=== PATIENT | male | born 1950 | race Caucasian/White ===

== ENCOUNTER 2018-02-05 06:46 | Day surgery (SDC) | payer SELFPAY ==
[2018-02-04 14:53] VITALS: BP 155/72
[2018-02-04 14:58] LABS: BASOPHILS % (AUTO) 0.8 % (0.0-5.0); EOSINOPHILS % (AUTO) 2.1 % (0.0-8.0); HEMATOCRIT 39.4 % (42-54); LYMPHOCYTES % (AUTO) 40.3 % (21.0-51.0); MEAN CORPUSCULAR HGB CONC 35.2 g/dL (32.0-36.0); MONOCYTES % (AUTO) 7.6 % (3.0-13.0); NEUTROPHILS % (AUTO) 49.2 % (40.0-77.0); PLATELET COUNT (AUTO) 295 K/uL (130-400); RED BLOOD CELL COUNT(AUTO) 4.33 MIL/uL (4.50-6.20); RED CELL DISTRIBUTION WIDTH 13.2 % (11.0-15.5)
[2018-02-04 15:10] LABS: CREATININE 1.1 mg/dL (0.5-1.5); POTASSIUM 4.6 mmol/L (3.5-5.1)
[~2018-02-05] VITALS: Ht 168.9 cm; Wt 79.3 kg
[2018-02-05] VITALS (20 sets, daily range): BP systolic 134–175; BP diastolic 78–94
[2018-02-05] MEDS: LEVOFLOXACIN 500 MG/D5W 100 ML 100 ML IV SCH ×2 (06:00→09:17)
[~2018-02-05 06:46] MED LIST: OXYB5TAB10 PO; TAMS0.4C32 PO
[2018-02-05] MEDS ORDERED: LACTATED RINGERS 1000ML 1,000 ML IV ONE (07:11)
[2018-02-05] MEDS ORDERED: ISOVUE-370 50ML VIAL IV ONE (08:00)
[2018-02-05] MEDS ORDERED: GLYCOPYRROLATE 0.2 MG/ML 5 ML VIAL ONE (09:19)
[2018-02-05] MEDS ORDERED: FENTANYL CITRATE PF 50 MCG/1 ML 2ML VIAL ONE (09:19)
[2018-02-05] MEDS ORDERED: LIDOCAINE PF 2% 5ML ABBOJECT ONE (09:19)
[2018-02-05] MEDS ORDERED: DEXAMETHASONE SOD PHOSPHATE 10MG/ML 1ML VIAL ONE (09:19)
[2018-02-05] MEDS ORDERED: MIDAZOLAM HCL 1 MG/ML 2ML VIAL ONE (09:19)
[2018-02-05] MEDS ORDERED: PROPOFOL 10 MG/ML 20ML VIAL IV ONE (09:19)
[2018-02-05] MEDS ORDERED: PHENAZOPYRIDINE HCL 200 MG TABLET ONE (11:38)
== END 2018-02-05 13:00 | disposition home or self-care (01) ==
LOC: DAH 06:46
PROVIDERS: ATTEND Urology
DX: N13.2 Hydronephrosis with renal and ureteral calculous obstruction (principal); I73.9 Peripheral vascular disease, unspecified; N40.0 Benign prostatic hyperplasia without lower urinary tract symptoms; Z88.0 Allergy status to penicillin; Z88.8 Allergy status to other drugs, medicaments and biological substances; Z80.52 Family history of malignant neoplasm of bladder; Z98.890 Other specified postprocedural states; E66.9 Obesity, unspecified
CPT/HCPCS: 36415; 52353; 76000; 80048; 82360; 85025; 88300; A4354; A4358; A4510; A4600; C1758; C1769; J1100; J1956; J2001; J2250; J2704; J3010; J3490; J7120; Q9967